=== PATIENT | female | born 1950 | race Two or more races ===

== ENCOUNTER 2024-06-04 13:00 | Emergency (ER) | payer OTHER, MEDICAID ==
[~2024-06-04] VITALS: Ht 144.8 cm; Wt 61.2 kg
--- NOTE | 2024-06-04 14:35 | DVH ---
CLINICAL INDICATION: LEFT LOWER RB PAIN TECHNIQUE: 5 radiographic views of the chest and left ribs were obtained. Comparison: None FINDINGS/IMPRESSION: Minimally displaced left 6th and 7th rib with minimal pleural thickening. No pneumothorax. The visualized joint space is well maintained. The alignment is anatomical. There is no radiopaque foreign body.
[2024-06-04 15:08] VITALS: BP 161/46; PULSE 61; RESP 16; TEMP 98; O2SAT 97
--- NOTE | 2024-06-04 15:32 | ED.PDOC ---
Back pain HPI HPI Comments 74 year left rib swallowed fruit 2 days ago and had Heimlich maneuver at restaurant and c/o left rib pain since. Denies SOB Chief Complaint: Rib Pain Time Seen by MD: 13:46 Primary Care Provider: ADORE Reviewed Notes: Nurses Notes, Medications Allergies: Coded Allergies: Penicillins (Verified Allergy, Unknown, 06/04/24) Information Source: Patient Mode of Arrival: Ambulatory All Other Systems: Reviewed and Negative (per hpi) Physical Exam General Appearance: No Apparent Distress, Normal HEENT: Normal ENT Inspection, Pharynx Normal, TMs Normal Neck: Full Range of Motion, Non-Tender, Normal, Normal Inspection Respiratory: Chest Non-Tender, Lungs Clear, No Accessory Muscle Use, No Respiratory Distress, Normal Breath Sounds Cardiovascular: No Edema, No JVD, No Murmur, No Gallop, Normal Peripheral Pulses, Regular Rate/Rhythm Breast Exam: Deferred Gastrointestinal: No Organomegaly, Non Tender, No Pulsatile Mass, Normal Bowel Sounds, Soft Genitalia: Deferred Pelvic: Deferred Rectal: Deferred Extremities: No calf tenderness, Normal capillary refill, Normal inspection, Normal range of motion, Non-tender, No pedal edema Musculoskeletal : Apperance: Normal Neurologic: Alert, No Motor Deficits, Normal Affect, Normal Mood, No Sensory De ficits Cerebellar Function: Normal Reflexes: Normal Skin: Dry, Normal Color, Warm Lymphatic: No Adenopathy Was a procedure done? Was a procedure done?: No Back Pain Differential Dx Differential Diagnosis: Fracture, Musculoskeletal Pain, Strain X-Ray, Labs, Meds, VS Vital Signs Date Time Temp Pulse Resp B/P (MAP) Pulse Ox O2 Delivery O2 Flow Rate FiO2 06/04/24 15:08 61 16 97 Room Air 06/04/24 15:08 98.0 61 16 161/46 (84) 97 98.0 06/04/24 13:34 98.0 61 16 161/46 (84) 97 X-Ray, Labs, Meds, VS Comment On reevaluation, patient had symptomatic improvement. Patient is stable for discharge at this time. External notes reviewed. Test results and diagnostic imaging interpreted. All diagnostic findings, discharge care, education and instructions provided Follow-up with PCP in 2 to 3 days Patient verbalized understanding and agreed to treatment plan Vital signs stable, afebrile, no acute distress noted Patient ambulatory with strong steady gait Advised to return precautions for any new or worsening symptoms, return to ER i mmediately for re-evaluation Patient is aware that the purpose of this visit was for an acute medical emergency requiring emergent stabilization. Chronic conditions, including malignancies have not been ruled out. Patient is instructed to follow up with PCP as directed and discharge instructions for continued care and workup. If unable to arrange follow-up, patient is to return to the emergency department for reassessment. Patient (parent or legal guardian if applicable) was given verbal and written discharge instructions and acknowledges understanding. Time of 1ST Reevaluation: 15:00 Reevaluation 1ST: Improved Patient Education/Counseling: Diagnosis, Treatment Family Education/Counseling: Diagnosis, Treatment Departure 1 Departure Time of Disposition: 15:32 Impression: Primary Impression: Left rib fracture Qualified Codes: S22.42XA - Multiple fractures of ribs, left side, initial encounter for closed fracture Disposition: 01 HOME / SELF CARE / HOMELESS Condition: Fair Discharged With: Self Critical Care Note Critical Care Time?: No Stability Stability form required: No Heart Score Heart Score: Heart Score Response (Comments) Value History N/A 0 EKG N/A 0 Age N/A 0 Risk Factors N/A 0 Troponin N/A 0 Total 0 ALEXANDER AGUILERA NP Jun 04, 2024 15:32
== END 2024-06-04 15:57 | disposition home or self-care (01) ==
LOC: ER 13:10
DX: S22.42XA Multiple fractures of ribs, left side, initial encounter for closed fracture (principal); Z88.0 Allergy status to penicillin; X58.XXXA Exposure to other specified factors, initial encounter; Y93.89 Activity, other specified; Y92.511 Restaurant or cafe as the place of occurrence of the external cause; Y99.9 Unspecified external cause status
CPT/HCPCS: 71101